=== PATIENT | female | born 1945 | race Caucasian/White ===

== ENCOUNTER → 2017-08-28 | Day surgery (SDC) | payer MEDICARE ==
--- NOTE | 2017-08-28 12:18 | MMO ---
STEREOTACTIC GUIDED BIOPSY OF LEFT BREAST MICROCALCIFICATIONS: Date: 08/28/17 HISTORY: Suspicious cluster of microcalcifications at the 7 o'clock position left breast. TECHNIQUE: The procedure, including risks and complications, were explained to the patient and informed consent was obtained. The microcalcifications were localized in a lateral medial direction with cluster of mi crocalcifications identified. These microcalcifications were localized. An area was meticulously prep ped and draped in the usual sterile fashion. Skin and subcutaneous tissues were infiltrated with buff ered 1% lidocaine with epinephrine for local anesthesia. A small skin incision was made. A 10 gauge biopsy needle was advanced, followed by stereotactic imaging confirming placement of the needle adjacent to the calcifications. Needle was then further advanced again, followed by imaging co nfirming placement of microcalcifications adjacent to the trough of the needle. A total of four core needle biopsy specimens were obtained. Specimen radiograph was then performed which demonstrated a cl uster of microcalcifications within the provided specimen. A biopsy marker clip was then deployed and stereotactic images demonstrate deployment of the biopsy c lip. The stereotactic guided biopsy needle was removed and hemostasis was achieved with direct pressure. D ry, sterile dressing was placed. Post biopsy mammograms were obtained, but the biopsy clip is in a different position than on the init ial screening mammograms and additional images which were obtained at [facility] on 08/10/17 as well as 08/15/17. However, the microcalcifications are not seen on the post biopsy mammo gram, suggesting that the correct calcifications were biopsied, but there is migration of biopsy mukesh er clip, with the biopsy marker clip located further medially than expected, which is probably relate d to re-expansion of the breast tissues and biopsy marker clip migration. IMPRESSION: 1. Technically successful stereotactic guided left breast biopsy of microcalcifications within the l ower inner left breast. 2. Microcalcifications were seen in the specimen mammogram. 3. Biopsy marker clip was successfully deployed. However, the biopsy marker clip is not in similar l ocation to the calcifications seen on initial mammograms obtained at [facility], bu t this is thought to be related to clip migration upon taking patient out of compression. Pathology i s currently pending at this time. POS: ROSA MARIA
--- NOTE | 2017-08-28 12:20 | MMO ---
SPECIMEN MAMMOGRAM LEFT BREAST: Date: 08/28/17 HISTORY: Stereotactic guided biopsy of suspicious grouping of microcalcifications in the left breast. FINDINGS: The grouping of microcalcifications is seen in one of the core specimens obtained with multiple micro calcifications seen. IMPRESSION: Microcalcifications are present within the left breast specimen mammogram. Pathology is currently pen ding. POS: ROSA MARIA
--- NOTE | 2017-08-28 12:25 | MMO ---
POST BIOPSY LEFT MAMMOGRAM: Date: 08/28/17 HISTORY: Suspicious grouping of microcalcifications within the left breast. These microcalcifications were bio psied utilizing stereotactic guidance and biopsy marker clip was deployed. FINDINGS: Comparison made to prior studies obtained at [facility] on 08/15/17. The microcalcifications previously noted within the lower and slightly inner middle depth left breast are not visualized on this examination. However, the biopsy marker clip is not present at the site o f the previously seen microcalcifications, and given that the microcalcifications are not visualized on this exam suggests that the correct microcalcifications were biopsied. No additional cluster of mi crocalcifications were seen on the prior mammograms. Findings are most suggestive of migration of the biopsy marker clip from the biopsy site after breast was released from compression. As a result, the biopsy marker clip is not at the site of previously seen microcalcifications and is present in the o uter and slightly central left breast. There is gas seen overlying the breast related to recent biops y. A few scattered microcalcifications are seen, some of which have a typically benign appearance and some of the microcalcifications may be related to a few residual punctate microcalcifications. IMPRESSION: Biopsy marker clip is present within the left breast, but the biopsy marker clip is at a different lo cation from the microcalcifications seen on prior mammograms, and findings are most likely related to clip migration. Biopsy results are currently pending. POS: ROSA MARIA
== END ==
LOC: MAMMO 08:14
PROVIDERS: ATTEND Emergency Medicine
PROC: 0HBU3ZX Excision of Left Breast, Percutaneous Approach, Diagnostic (ICD-10-PCS; principal; 2017-08-28)
DX: N60.92 Unspecified benign mammary dysplasia of left breast (principal)
CPT/HCPCS: 19081; 76098; 88305; G0206